=== PATIENT | female | born 1955 | race Caucasian/White ===

== ENCOUNTER 2017-01-11 17:51 | Emergency (ER) | payer OTHER ==
[~2017-01-11] VITALS: Ht 157.5 cm; Wt 40.1 kg
[~2017-01-11 17:51] MED LIST: B12 HEALTH1000 MCG/1 PO; BONIVA150 MG PO; CELLCEPT500 MG PO; CUBICIN500 MG/10 IV; FIBERCON625 MG PO; KLONOPIN1 MG PO; LASIX40 MG PO; LIBRAX CAPSULE1 EACH PO; LIPITOR20 MG PO; OMEGA 3 1,0001 EACH PO; PREDNISONE5 M2 PO; PROBIOTIC1 EACH PO; PROGRAF1 MG PO; PROTONIX40 MG PO; SORBITOL1 ML PO; SPS RC; VITAMIN A10000 UNI1 PO; VITAMIN C1000 M3 GT; VITAMIN D2000 INTUN PO; ZOLOFT100 MG PO
[2017-01-11 19:45] LABS: HEMATOCRIT 37.8 % (36.0-46.0); MCH 29.4 PG (29.0-34.0); MCHC 33.3 G/DL (30.0-36.0); MCV 88.1 FL (83-99); MEAN PLAT.VOLUME 9.6 uM^3 (9.5-12.4); PLATELET COUNT 210 K/uL (156-360); RBC DIS.WIDTH-CV 14.4 % (11.8-14.6); RBC DIS.WIDTH-SD 45.8 % (39-53); RED BLOOD COUNT 4.29 M/uL (3.80-5.20); WHITE BLOOD COUNT 4.8 K/uL (4.1-10.2)
[2017-01-11 19:58] LABS: ADD MIUA? YES; BILIRUBIN NEGATIVE; BLOOD SMALL; COLOR YELLOW ((YELLOW)); GLUCOSE (STRIP) NEGATIVE; KETONES NEGATIVE; LEUKOCYTES NEGATIVE; NITRITE NEGATIVE; PROTEIN (STRIP) 100; UROBILINOGEN 0.2 MG/DL (0.2-1.0)
[2017-01-11 20:35] LABS: BACTERIA 3+ /HPF; EPITHELIAL CELLS RARE /HPF; MUCUS NONE SEEN /LPF; RED BLOOD CELLS 0-5 /HPF (0-5); UCUL ADDED? YES
[2017-01-11 20:36] LABS: CASTS NONE SEEN /LPF; CRYSTALS NONE SEEN
[2017-01-11 20:48] LABS: CHLORIDE 98 mEq/L (99-109); POTASSIUM 3.7 mEq/L (3.7-5.4); SODIUM 131 mEq/L (136-147)
[2017-01-11 20:51] LABS: GLUCOSE 83 mg/dL (70-99)
[2017-01-11 20:52] LABS: ANION GAP 7 MEQ/L (2-14)
[2017-01-11 20:53] LABS: TOTAL BILIRUBIN 0.3 mg/dL (0.0-1.0)
[2017-01-11 20:54] LABS: ALKALINE PHOSPHATASE 83 IU/L (3-129); GFR ESTIMATE (CALCULATED) 44 mL/min/
[2017-01-11 20:55] LABS: UREA NITROGEN (BUN) 30 mg/dL (9-23)
[2017-01-11] MEDS ORDERED: BACTRIM,SEPT1 TABLET PO (22:32)
[2017-01-12 03:03] VITALS: BP 144/89
== END 2017-01-12 03:05 | disposition home or self-care (01) ==
LOC: EME 17:51
PROVIDERS: Emergency Medicine
DX: N39.0 Urinary tract infection, site not specified (principal); R42 Dizziness and giddiness; E11.9 Type 2 diabetes mellitus without complications; F32.9 Major depressive disorder, single episode, unspecified; N18.9 Chronic kidney disease, unspecified; Z88.0 Allergy status to penicillin; Z94.0 Kidney transplant status; Z94.83 Pancreas transplant status
CPT/HCPCS: 70450; 80053; 81003; 85027; 87077; 87086; 87186; 93005; 99281; 99285; J7030

== ENCOUNTER 2017-01-17 13:05 | Inpatient (IN) | payer OTHER ==
[~2017-01-17] VITALS: Ht 152.4 cm; Wt 44.6 kg
[~2017-01-17 13:05] MED LIST changes: +BACTRIM,SEPT1 TABLET PO
[2017-01-17 13:52] LABS: HEMATOCRIT 33.8 % (36.0-46.0); MCH 28.8 PG (29.0-34.0); MCHC 33.4 G/DL (30.0-36.0); PLATELET COUNT 304 K/uL (156-360); RBC DIS.WIDTH-CV 13.8 % (11.8-14.6); RBC DIS.WIDTH-SD 44.1 % (39-53); RED BLOOD COUNT 3.93 M/uL (3.80-5.20); WHITE BLOOD COUNT 4.5 K/uL (4.1-10.2)
[2017-01-17 13:59] LABS: CHLORIDE 98 mEq/L (99-109); POTASSIUM 4.2 mEq/L (3.7-5.4); SODIUM 129 mEq/L (136-147)
[2017-01-17 14:00] LABS: GLUCOSE 92 mg/dL (70-99)
[2017-01-17 14:02] LABS: ANION GAP 8 MEQ/L (2-14)
[2017-01-17 14:04] LABS: GFR ESTIMATE (CALCULATED) 27 mL/min/
[2017-01-17 14:05] LABS: UREA NITROGEN (BUN) 32 mg/dL (9-23)
[2017-01-17 14:16] LABS: TROP-I INTERPRETATION NEGATIVE; TROPONIN-I 0.02 ng/mL (0.0-0.30)
[2017-01-17 14:41] LABS: ADD MIUA? YES; BILIRUBIN NEGATIVE; BLOOD SMALL; COLOR YELLOW ((YELLOW)); GLUCOSE (STRIP) NEGATIVE; KETONES NEGATIVE; LEUKOCYTES LARGE; NITRITE NEGATIVE; PROTEIN (STRIP) 100; SPECIFIC GRAVITY 1.009 (1.000-1.030); UROBILINOGEN 0.2 MG/DL (0.2-1.0)
[2017-01-17 15:06] LABS: BACTERIA 2+ /HPF; EPITHELIAL CELLS RARE /HPF; MUCUS TRACE /LPF; UCUL ADDED? YES; WHITE BLOOD CELLS TNTC /HPF (0-5)
[2017-01-17] MEDS ORDERED: PREDNISONE5 MG PO (16:46)
[2017-01-17] MEDS ORDERED: WELLBUTRIN XL300 MG PO (16:49)
[2017-01-17] MEDS ORDERED: MYCOPHENOLATE250 MG PO (16:50)
[2017-01-17] MEDS ORDERED: BACTRIM,SEPT1 TABLET PO (16:58)
[2017-01-17] MEDS ORDERED: TUMS500 MG PO (16:59)
[2017-01-17] MEDS ORDERED: PEPOGEST0.2 ML PO (16:59)
[2017-01-17] MEDS ORDERED: MUCINEX600 MG PO (17:01)
[2017-01-17] MEDS ORDERED: FISH OIL 1,0001 EAC7 PO (17:01)
[2017-01-17] MEDS ORDERED: AFRIN,GENASAL D15 ML BOTH NARES (17:02)
[2017-01-17] MEDS ORDERED: LACTAID ULT9000 UNIT PO (17:02)
[2017-01-17] MEDS ORDERED: PROMETHAZINE HC25 M1 PO (17:03)
[2017-01-17] MEDS ORDERED: LOPERAMIDE2 M1 PO (17:04)
[2017-01-17] MEDS ORDERED: BENADRYL25 MG PO (17:05)
[2017-01-17] MEDS ORDERED: GAS RELIEF125 M1 PO (17:05)
[2017-01-17] MEDS ORDERED: TYLENOL EXTRA500 MG PO (17:06)
[2017-01-17] MEDS ORDERED: MILK OF MAGN PO (17:06)
[2017-01-17] MEDS ORDERED: MIRALAX17 GM PO (17:07)
[2017-01-17] MEDS ORDERED: ADULT SUPPOSIT1 EACH PR (17:08)
[2017-01-17] MEDS ORDERED: PEPTO BISMOL262 MG PO (17:08)
[2017-01-17 18:09] VITALS: BP 138/77
[2017-01-17 18:24] VITALS: BP 138/77
[2017-01-17 21:40] VITALS: BP 160/80
[2017-01-17 23:34] VITALS: BP 148/78
[2017-01-18 04:34] VITALS: BP 134/72
[2017-01-18 07:17] VITALS: BP 139/66
[2017-01-18 07:32] LABS: ANION GAP 10 MEQ/L (2-14); CHLORIDE 101 MEQ/L (99-109); GFR ESTIMATE (CALCULATED) 32 mL/min/; GLUCOSE 65 mg/dL (70-99); POTASSIUM 4.1 MEQ/L (3.7-5.4); SAMPLE HEMOLYSIS CHECK 0; SAMPLE ICTERIC CHECK 0; SAMPLE LIPEMIA CHECK 0; SODIUM 132 MEQ/L (136-147); UREA NITROGEN (BUN) 30 mg/dL (9-23)
[2017-01-18 13:20] VITALS: BP 120/66
[2017-01-18 15:40] VITALS: BP 116/66
[2017-01-18 19:29] VITALS: BP 103/57
[2017-01-18 23:42] VITALS: BP 117/73
[2017-01-19 03:31] VITALS: BP 104/63
[2017-01-19 06:36] LABS: ANION GAP 10 MEQ/L (2-14); CHLORIDE 100 MEQ/L (99-109); GFR ESTIMATE (CALCULATED) 35 mL/min/; GLUCOSE 74 mg/dL (70-99); SAMPLE HEMOLYSIS CHECK 0; SAMPLE ICTERIC CHECK 0; SAMPLE LIPEMIA CHECK 0; SODIUM 131 MEQ/L (136-147); UREA NITROGEN (BUN) 28 mg/dL (9-23)
[2017-01-19 07:01] VITALS: BP 114/68
[2017-01-19 15:37] VITALS: BP 135/79
[2017-01-20 08:05] VITALS: BP 116/71
[2017-01-20 08:18] LABS: EOSINOPHIL (%) 0.2 % (0-5); HEMATOCRIT 32.7 % (36.0-46.0); IMMATURE GRANULOCYTE (%) 0.2 % (0.0-0.7); INSTRUMENT ABS NEUTROPHIL CT 2.7 K/uL; LYMPHOCYTE COUNT 1.2 K/uL (1.0-2.8); MCH 29.7 PG (29.0-34.0); MCV 89.8 FL (83-99); MONOCYTE (%) 4.1 % (3-12); MONOCYTE COUNT 0.2 K/uL (0-0.8); NEUTROPHIL (%) 65.4 % (45-76); NEUTROPHIL COUNT 2.7 K/uL (1.8-6.4); PLATELET COUNT 305 K/uL (156-360); RBC DIS.WIDTH-CV 14.1 % (11.8-14.6); RBC DIS.WIDTH-SD 46.4 % (39-53); RED BLOOD COUNT 3.64 M/uL (3.80-5.20); WHITE BLOOD COUNT 4.2 K/uL (4.1-10.2)
[2017-01-20 08:32] LABS: AMYLASE 61 IU/L (1-118); ANION GAP 10 MEQ/L (2-14); CHLORIDE 101 MEQ/L (99-109); GFR ESTIMATE (CALCULATED) 35 mL/min/; GLUCOSE 65 mg/dL (70-99); LIPASE 58 U/L (1.0-51.0); POTASSIUM 4.3 MEQ/L (3.7-5.4); SAMPLE HEMOLYSIS CHECK 0; SAMPLE ICTERIC CHECK 0; SAMPLE LIPEMIA CHECK 0; SODIUM 131 MEQ/L (136-147); UREA NITROGEN (BUN) 26 mg/dL (9-23)
[2017-01-20 16:06] LABS: URIC ACID 3.9 mg/dL (3.1-9.2)
[2017-01-20 16:45] VITALS: BP 135/80
[2017-01-20 23:33] VITALS: BP 133/70
[2017-01-21 00:04] VITALS: BP 120/59
[2017-01-21 07:10] VITALS: BP 146/72
[2017-01-21 07:28] LABS: ANION GAP 8 MEQ/L (2-14); CHLORIDE 103 MEQ/L (99-109); GFR ESTIMATE (CALCULATED) 44 mL/min/; GLUCOSE 70 mg/dL (70-99); POTASSIUM 4.3 MEQ/L (3.7-5.4); SAMPLE HEMOLYSIS CHECK 0; SAMPLE ICTERIC CHECK 0; SAMPLE LIPEMIA CHECK 0; SODIUM 131 MEQ/L (136-147); UREA NITROGEN (BUN) 21 mg/dL (9-23)
[2017-01-21 16:21] VITALS: BP 116/65
[2017-01-22 00:01] VITALS: BP 138/82
[2017-01-22 06:42] LABS: ANION GAP 8 MEQ/L (2-14); CHLORIDE 102 MEQ/L (99-109); GFR ESTIMATE (CALCULATED) 53 mL/min/; GLUCOSE 65 mg/dL (70-99); POTASSIUM 4.5 MEQ/L (3.7-5.4); SAMPLE HEMOLYSIS CHECK 0; SAMPLE ICTERIC CHECK 0; SAMPLE LIPEMIA CHECK 0; SODIUM 130 MEQ/L (136-147); UREA NITROGEN (BUN) 19 mg/dL (9-23)
[2017-01-22 06:57] VITALS: BP 123/60
[2017-01-22 07:00] VITALS: BP 137/76
[2017-01-22 17:00] VITALS: BP 107/68
[2017-01-23 00:44] VITALS: BP 127/62
[2017-01-23 07:04] LABS: ANION GAP 7 MEQ/L (2-14); CHLORIDE 102 MEQ/L (99-109); GFR ESTIMATE (CALCULATED) 53 mL/min/; POTASSIUM 4.5 MEQ/L (3.7-5.4); SAMPLE HEMOLYSIS CHECK 0; SAMPLE ICTERIC CHECK 0; SAMPLE LIPEMIA CHECK 0; SODIUM 132 MEQ/L (136-147); UREA NITROGEN (BUN) 17 mg/dL (9-23)
[2017-01-23 07:05] LABS: GLUCOSE 82 mg/dL (70-99)
[2017-01-23 07:33] VITALS: BP 116/73
[2017-01-23] MEDS ORDERED: ANTIVERT25 MG PO (10:06)
[2017-01-23 15:55] VITALS: BP 140/81
[2017-01-23 20:05] VITALS: BP 115/73
== END 2017-01-23 21:18 | disposition home or self-care (01) | DRG 149 ==
LOC: EME 13:05 → EDOF 16:05 → 2EASTP 16:05 → 2EAST 01-20 22:40
PROVIDERS: Emergency Medicine; Internal Medicine; Internal Medicine Nephrology
DX: H81.10 Benign paroxysmal vertigo, unspecified ear (principal); N39.0 Urinary tract infection, site not specified; T45.1X1D Poisoning by antineoplastic and immunosuppressive drugs, accidental (unintentional), subsequent encounter; Z94.0 Kidney transplant status; Z94.83 Pancreas transplant status; Z68.1 Body mass index [BMI] 19.9 or less, adult; E10.21 Type 1 diabetes mellitus with diabetic nephropathy; E46 Unspecified protein-calorie malnutrition; N17.9 Acute kidney failure, unspecified; R33.0 Drug induced retention of urine; I73.9 Peripheral vascular disease, unspecified; T45.1X5A Adverse effect of antineoplastic and immunosuppressive drugs, initial encounter; E10.22 Type 1 diabetes mellitus with diabetic chronic kidney disease; E10.319 Type 1 diabetes mellitus with unspecified diabetic retinopathy without macular edema; E87.1 Hypo-osmolality and hyponatremia; E10.40 Type 1 diabetes mellitus with diabetic neuropathy, unspecified; E78.5 Hyperlipidemia, unspecified; D63.1 Anemia in chronic kidney disease; F32.9 Major depressive disorder, single episode, unspecified; H35.30 Unspecified macular degeneration; B96.4 Proteus (mirabilis) (morganii) as the cause of diseases classified elsewhere; E55.9 Vitamin D deficiency, unspecified; K21.9 Gastro-esophageal reflux disease without esophagitis; Z89.512 Acquired absence of left leg below knee; Z79.899 Other long term (current) drug therapy; Z79.4 Long term (current) use of insulin
CPT/HCPCS: 70450; 76776; 80048; 80069; 80197 90; 81003; 82150; 82306; 82436; 82948; 83605; 83690; 83935; 84300; 84443; 84484; 84550; 85025; 85027; 87077; 87086; 87186; 93005; 97530 GP; 99281; 99284; J0690; J0696; J1644; J2405; J7030; J7050; J7507; J7512; J7517; Q0169

== ENCOUNTER 2017-03-12 16:31 | Inpatient (IN) | payer OTHER ==
[~2017-03-12] VITALS: Ht 170.2 cm; Wt 47.2 kg
[~2017-03-12 16:31] MED LIST changes: +ADULT SUPPOSIT1 EACH PR; +AFRIN,GENASAL D15 ML BOTH NARES; +ANTIVERT25 MG PO; +BENADRYL25 MG PO; +FISH OIL 1,0001 EAC7 PO; +GAS RELIEF125 M1 PO; +LACTAID ULT9000 UNIT PO; +LOPERAMIDE2 M1 PO; +MILK OF MAGN PO; +MIRALAX17 GM PO; +MUCINEX600 MG PO; +MYCOPHENOLATE250 MG PO; +PEPOGEST0.2 ML PO; +PEPTO BISMOL262 MG PO; +PREDNISONE5 MG PO; +PROMETHAZINE HC25 M1 PO; +TUMS500 MG PO; +TYLENOL EXTRA500 MG PO; +WELLBUTRIN XL300 MG PO
[2017-03-12 19:59] LABS: HEMATOCRIT 34.3 % (36.0-46.0); MCH 29.6 PG (29.0-34.0); MCHC 34.1 G/DL (30.0-36.0); MEAN PLAT.VOLUME 8.7 uM^3 (9.5-12.4); PLATELET COUNT 216 K/uL (156-360); RBC DIS.WIDTH-CV 14.3 % (11.8-14.6); RBC DIS.WIDTH-SD 45.6 % (39-53); RED BLOOD COUNT 3.95 M/uL (3.80-5.20); WHITE BLOOD COUNT 5.9 K/uL (4.1-10.2)
[2017-03-12 20:00] LABS: MCV 86.8 FL (83-99)
[2017-03-12 20:10] LABS: CHLORIDE 96 mEq/L (99-109); POTASSIUM 4.7 mEq/L (3.7-5.4); SODIUM 129 mEq/L (136-147)
[2017-03-12 20:11] LABS: GLUCOSE 77 mg/dL (70-99)
[2017-03-12 20:13] LABS: ANION GAP 9 MEQ/L (2-14)
[2017-03-12 20:15] LABS: GFR ESTIMATE (CALCULATED) > 59 mL/min/
[2017-03-12 20:16] LABS: UREA NITROGEN (BUN) 7 mg/dL (9-23)
[2017-03-12] MEDS ORDERED: FISH OIL GUMMI1 EACH PO (21:22)
[2017-03-12] MEDS ORDERED: MACROBID100 MG PO (21:25)
[2017-03-12] MEDS ORDERED: WELLBUTRIN100 MG PO (21:28)
[2017-03-12] MEDS ORDERED: PREPARATION H C51 G1 PR (21:43)
[2017-03-12] MEDS ORDERED: NASAL DECONGEST30 MG PO (21:45)
[2017-03-12] MEDS ORDERED: [UNRECOGNIZED DRUG - OTHER] PO (21:48)
[2017-03-13] VITALS (7 sets, daily range): BP systolic 98–175; BP diastolic 53–95
[2017-03-13 06:07] LABS: POINT-OF-CARE METER ID UU14162508
[2017-03-13 06:19] LABS: HEMATOCRIT 32.1 % (36.0-46.0); MCH 29.9 PG (29.0-34.0); MCHC 34.3 G/DL (30.0-36.0); MCV 87.2 FL (83-99); MEAN PLAT.VOLUME 8.6 uM^3 (9.5-12.4); PLATELET COUNT 210 K/uL (156-360); RBC DIS.WIDTH-CV 14.5 % (11.8-14.6); RBC DIS.WIDTH-SD 45.9 % (39-53); RED BLOOD COUNT 3.68 M/uL (3.80-5.20); WHITE BLOOD COUNT 6.2 K/uL (4.1-10.2)
[2017-03-13 06:49] LABS: ANION GAP 7 MEQ/L (2-14); CHLORIDE 98 MEQ/L (99-109); GFR ESTIMATE (CALCULATED) > 59 mL/min/; GLUCOSE 77 mg/dL (70-99); POTASSIUM 3.9 MEQ/L (3.7-5.4); SAMPLE HEMOLYSIS CHECK 0; SAMPLE ICTERIC CHECK 0; SAMPLE LIPEMIA CHECK 0; SODIUM 130 MEQ/L (136-147); UREA NITROGEN (BUN) 8 mg/dL (9-23)
[2017-03-13 10:26] LABS: METH RESISTANT S AUREUS PCR NEGATIVE (NEGATIVE)
[2017-03-13 10:37] LABS: PROBE CHECK PASS; SPECIMEN PROCESSING CONTROL PASS
[2017-03-13 13:15] LABS: POINT-OF-CARE METER ID UU14162508
[2017-03-13 18:02] LABS: POINT-OF-CARE METER ID UU14162508
[2017-03-13 21:29] LABS: ADD MIUA? YES; BILIRUBIN NEGATIVE; BLOOD SMALL; COLOR YELLOW ((YELLOW)); GLUCOSE (STRIP) 50; KETONES NEGATIVE; LEUKOCYTES LARGE; NITRITE POSITIVE; PROTEIN (STRIP) NEGATIVE; SPECIFIC GRAVITY 1.006 (1.000-1.030); UROBILINOGEN 0.2 MG/DL (0.2-1.0)
[2017-03-13 21:29] LABS: POINT-OF-CARE METER ID UU14208750
[2017-03-13 21:49] LABS: EPITHELIAL CELLS 2+ /HPF; MUCUS RARE /LPF; RED BLOOD CELLS 0-5 /HPF (0-5); WHITE BLOOD CELLS TNTC /HPF (0-5)
[2017-03-13 21:50] LABS: BACTERIA 2+ /HPF
[2017-03-14 07:19] LABS: HEMATOCRIT 34.4 % (36.0-46.0); MCHC 33.1 G/DL (30.0-36.0); MCV 87.5 FL (83-99); MEAN PLAT.VOLUME 8.7 uM^3 (9.5-12.4); PLATELET COUNT 213 K/uL (156-360); RBC DIS.WIDTH-CV 14.7 % (11.8-14.6); RBC DIS.WIDTH-SD 47.8 % (39-53); RED BLOOD COUNT 3.93 M/uL (3.80-5.20); WHITE BLOOD COUNT 5.7 K/uL (4.1-10.2)
[2017-03-14 07:41] LABS: ANION GAP 7 MEQ/L (2-14); CHLORIDE 101 MEQ/L (99-109); GFR ESTIMATE (CALCULATED) > 59 mL/min/; GLUCOSE 77 mg/dL (70-99); POTASSIUM 3.7 MEQ/L (3.7-5.4); SAMPLE HEMOLYSIS CHECK 0; SAMPLE ICTERIC CHECK 0; SAMPLE LIPEMIA CHECK 0; SODIUM 133 MEQ/L (136-147); UREA NITROGEN (BUN) 7 mg/dL (9-23)
[2017-03-14 07:50] VITALS: BP 172/93
[2017-03-14 16:02] VITALS: BP 174/91
[2017-03-14 23:21] VITALS: BP 158/90
[2017-03-15 04:10] VITALS: BP 149/75
[2017-03-15 07:25] VITALS: BP 164/86
[2017-03-15 08:11] LABS: ANION GAP 6 MEQ/L (2-14); CHLORIDE 100 MEQ/L (99-109); GFR ESTIMATE (CALCULATED) > 59 mL/min/; GLUCOSE 76 mg/dL (70-99); POTASSIUM 3.4 MEQ/L (3.7-5.4); SAMPLE HEMOLYSIS CHECK 0; SAMPLE ICTERIC CHECK 0; SAMPLE LIPEMIA CHECK 0; SODIUM 134 MEQ/L (136-147); UREA NITROGEN (BUN) 7 mg/dL (9-23)
[2017-03-15] MEDS ORDERED: ELIQUIS5 MG PO (08:51)
[2017-03-15] MEDS ORDERED: KEFLEX500 MG PO (08:51)
== END 2017-03-15 13:45 | disposition home or self-care (01) | DRG 300 ==
LOC: EME 16:31 → 2EASTP 21:53 → EDOF 21:53 → ENRESERV 21:55 → 2EASTP 03-13 00:24
PROVIDERS: Emergency Medicine; Hospitalist; Internal Medicine
DX: I82.431 Acute embolism and thrombosis of right popliteal vein (principal); I82.441 Acute embolism and thrombosis of right tibial vein; I82.491 Acute embolism and thrombosis of other specified deep vein of right lower extremity; E11.628 Type 2 diabetes mellitus with other skin complications; L03.115 Cellulitis of right lower limb; E11.22 Type 2 diabetes mellitus with diabetic chronic kidney disease; N18.9 Chronic kidney disease, unspecified; Z94.0 Kidney transplant status; Z94.83 Pancreas transplant status; E87.1 Hypo-osmolality and hyponatremia; E11.319 Type 2 diabetes mellitus with unspecified diabetic retinopathy without macular edema; E11.42 Type 2 diabetes mellitus with diabetic polyneuropathy; H35.30 Unspecified macular degeneration; F32.9 Major depressive disorder, single episode, unspecified; F41.9 Anxiety disorder, unspecified; Z68.1 Body mass index [BMI] 19.9 or less, adult; Z89.512 Acquired absence of left leg below knee; Z79.899 Other long term (current) drug therapy; Z99.3 Dependence on wheelchair; Z80.51 Family history of malignant neoplasm of kidney; Z82.49 Family history of ischemic heart disease and other diseases of the circulatory system
CPT/HCPCS: 80048; 81003; 82948; 85027; 87040; 87086; 87641; 93971; 99281; 99285; J0690; J1815; J2405; J7507; J7512; J7517

== ENCOUNTER 2017-04-07 10:20 | Inpatient (IN) | payer OTHER ==
[~2017-04-07] VITALS: Ht 152.4 cm; Wt 42.0 kg
[~2017-04-07 10:20] MED LIST changes: +ELIQUIS5 MG PO; +FISH OIL GUMMI1 EACH PO; +KEFLEX500 MG PO; +MACROBID100 MG PO; +NASAL DECONGEST30 MG PO; +PREPARATION H C51 G1 PR; +[UNRECOGNIZED DRUG - OTHER] PO
[2017-04-07 11:04] LABS: EOSINOPHIL (%) 0 % (0-5); IMMATURE GRANULOCYTE (%) 0.4 % (0.0-0.7); IMMATURE GRANULOCYTE COUNT 0.1 K/uL; INSTRUMENT ABS NEUTROPHIL CT 13.6 K/uL; LYMPHOCYTE COUNT 0.4 K/uL (1.0-2.8); MCH 28.8 PG (29.0-34.0); MCHC 33.6 G/DL (30.0-36.0); MCV 85.9 FL (83-99); MEAN PLAT.VOLUME 8.5 uM^3 (9.5-12.4); MONOCYTE (%) 2.3 % (3-12); MONOCYTE COUNT 0.3 K/uL (0-0.8); NEUTROPHIL (%) 94.4 % (45-76); NEUTROPHIL COUNT 13.6 K/uL (1.8-6.4); PLATELET COUNT 471 K/uL (156-360); RBC DIS.WIDTH-CV 14.7 % (11.8-14.6); RBC DIS.WIDTH-SD 46.3 % (39-53); RED BLOOD COUNT 3.26 M/uL (3.80-5.20); WHITE BLOOD COUNT 14.4 K/uL (4.1-10.2)
[2017-04-07 11:10] LABS: CHLORIDE 108 mEq/L (99-109); POTASSIUM 3.5 mEq/L (3.7-5.4); SODIUM 134 mEq/L (136-147)
[2017-04-07 11:13] LABS: ANION GAP 7 MEQ/L (2-14); GLUCOSE 101 mg/dL (70-99)
[2017-04-07 11:14] LABS: TOTAL BILIRUBIN 0.5 mg/dL (0.0-1.0)
[2017-04-07 11:16] LABS: ALKALINE PHOSPHATASE 111 IU/L (3-129); GFR ESTIMATE (CALCULATED) > 59 mL/min/
[2017-04-07 11:17] LABS: UREA NITROGEN (BUN) 17 mg/dL (9-23)
[2017-04-07] MEDS ORDERED: ALLERGY RELIEF25 M1 PO (12:51)
[2017-04-07] MEDS ORDERED: CULTURELLE1 EAC1 PO (12:51)
[2017-04-07] MEDS ORDERED: NASAL DECONGESTANT PO (12:52)
[2017-04-07] MEDS ORDERED: ROBITUSSIN DM118 ML PO (12:53)
[2017-04-07] MEDS ORDERED: ELIQUIS5 MG PO (12:57)
[2017-04-07 14:46] LABS: ADD MIUA? YES; BILIRUBIN NEGATIVE; BLOOD NEGATIVE; COLOR YELLOW ((YELLOW)); GLUCOSE (STRIP) NEGATIVE; KETONES NEGATIVE; LEUKOCYTES LARGE; NITRITE NEGATIVE; PROTEIN (STRIP) 30; SPECIFIC GRAVITY 1.012 (1.000-1.030)
[2017-04-07 14:58] LABS: BACTERIA RARE /HPF; EPITHELIAL CELLS RARE /HPF; HYALINE CASTS 0-5 /LPF; MUCUS NONE SEEN /LPF; RED BLOOD CELLS 0-5 /HPF (0-5); UCUL ADDED? YES; WHITE BLOOD CELLS TNTC /HPF (0-5)
[2017-04-07 16:34] LABS: INFLUENZA A VIRAL ANTIGEN NEGATIVE; INFLUENZA B VIRAL ANTIGEN NEGATIVE
[2017-04-07 17:46] VITALS: BP 178/79
[2017-04-07 20:10] VITALS: BP 163/70
[2017-04-07 20:53] LABS: C DIFF TOXIN NEGATIVE (NEGATIVE)
[2017-04-07 20:56] LABS: PROBE CHECK PASS; SPECIMEN PROCESSING CONTROL PASS
[2017-04-07 22:01] LABS: POINT-OF-CARE METER ID UU14162508
[2017-04-07 23:29] VITALS: BP 162/78
[2017-04-08] VITALS (7 sets, daily range): BP systolic 128–167; BP diastolic 73–90
[2017-04-08 06:38] LABS: POINT-OF-CARE METER ID UU14162508
[2017-04-08 07:00] LABS: EOSINOPHIL (%) 0 % (0-5); HEMATOCRIT 26.8 % (36.0-46.0); IMMATURE GRANULOCYTE (%) 0.7 % (0.0-0.7); IMMATURE GRANULOCYTE COUNT 0.1 K/uL; LYMPHOCYTE COUNT 0.6 K/uL (1.0-2.8); MCH 29.8 PG (29.0-34.0); MCV 87.9 FL (83-99); MEAN PLAT.VOLUME 8.9 uM^3 (9.5-12.4); MONOCYTE (%) 2.9 % (3-12); MONOCYTE COUNT 0.4 K/uL (0-0.8); NEUTROPHIL (%) 91.2 % (45-76); PLATELET COUNT 506 K/uL (156-360); RBC DIS.WIDTH-CV 15.1 % (11.8-14.6); RBC DIS.WIDTH-SD 48.5 % (39-53); RED BLOOD COUNT 3.05 M/uL (3.80-5.20); WHITE BLOOD COUNT 12.1 K/uL (4.1-10.2)
[2017-04-08 07:31] LABS: ALKALINE PHOSPHATASE 95 IU/L (3-129); ANION GAP 8 MEQ/L (2-14); CHLORIDE 109 MEQ/L (99-109); GFR ESTIMATE (CALCULATED) > 59 mL/min/; GLUCOSE 84 mg/dL (70-99); POTASSIUM 4.2 MEQ/L (3.7-5.4); SAMPLE HEMOLYSIS CHECK 0; SAMPLE ICTERIC CHECK 0; SAMPLE LIPEMIA CHECK 0; SODIUM 137 MEQ/L (136-147); TOTAL BILIRUBIN 0.4 MG/DL (0.0-1.0); UREA NITROGEN (BUN) 14 mg/dL (9-23)
[2017-04-08 08:37] LABS: INTERNAL CONTROL VALID? YES
[2017-04-09 03:21] VITALS: BP 162/80
[2017-04-09 07:30] VITALS: BP 166/89
[2017-04-09 11:21] VITALS: BP 164/93
[2017-04-09 15:28] VITALS: BP 176/92
[2017-04-10 00:12] VITALS: BP 162/98
[2017-04-10 06:28] LABS: EOSINOPHIL (%) 0.5 % (0-5); EOSINOPHIL COUNT 0.1 K/uL (0-0.3); HEMATOCRIT 28.6 % (36.0-46.0); IMMATURE GRANULOCYTE (%) 1.3 % (0.0-0.7); IMMATURE GRANULOCYTE COUNT 0.1 K/uL; INSTRUMENT ABS NEUTROPHIL CT 8.2 K/uL; LYMPHOCYTE COUNT 0.9 K/uL (1.0-2.8); MCH 28.5 PG (29.0-34.0); MCHC 32.2 G/DL (30.0-36.0); MCV 88.5 FL (83-99); MEAN PLAT.VOLUME 8.6 uM^3 (9.5-12.4); MONOCYTE (%) 3.6 % (3-12); MONOCYTE COUNT 0.4 K/uL (0-0.8); NEUTROPHIL (%) 85.5 % (45-76); NEUTROPHIL COUNT 8.2 K/uL (1.8-6.4); PLATELET COUNT 502 K/uL (156-360); RBC DIS.WIDTH-CV 15.1 % (11.8-14.6); RBC DIS.WIDTH-SD 48.9 % (39-53); RED BLOOD COUNT 3.23 M/uL (3.80-5.20); WHITE BLOOD COUNT 9.6 K/uL (4.1-10.2)
[2017-04-10 07:46] VITALS: BP 163/87
[2017-04-10 11:19] VITALS: BP 112/88
[2017-04-10 15:30] VITALS: BP 160/80
[2017-04-11 00:06] VITALS: BP 125/85
[2017-04-11 07:40] VITALS: BP 162/89
[2017-04-11 17:26] VITALS: BP 175/89
[2017-04-12 00:18] VITALS: BP 135/85
[2017-04-12 07:16] LABS: HEMATOCRIT 29.6 % (36.0-46.0); MCHC 32.8 G/DL (30.0-36.0); MCV 88.6 FL (83-99); MEAN PLAT.VOLUME 8.9 uM^3 (9.5-12.4); PLATELET COUNT 525 K/uL (156-360); RBC DIS.WIDTH-CV 15.3 % (11.8-14.6); RBC DIS.WIDTH-SD 49.1 % (39-53); RED BLOOD COUNT 3.34 M/uL (3.80-5.20); WHITE BLOOD COUNT 8.4 K/uL (4.1-10.2)
[2017-04-12 07:42] LABS: ANION GAP 8 MEQ/L (2-14); CHLORIDE 109 MEQ/L (99-109); GFR ESTIMATE (CALCULATED) > 59 mL/min/; GLUCOSE 96 mg/dL (70-99); POTASSIUM 3.2 MEQ/L (3.7-5.4); SAMPLE HEMOLYSIS CHECK 0; SAMPLE ICTERIC CHECK 0; SAMPLE LIPEMIA CHECK 0; SODIUM 138 MEQ/L (136-147); UREA NITROGEN (BUN) 6 mg/dL (9-23)
[2017-04-12 08:11] VITALS: BP 150/84
[2017-04-12] MEDS ORDERED: BETHANECHOL CHL25 MG PO (14:26)
[2017-04-12] MEDS ORDERED: NATURAL BALANCE15 M1 BOTH EYES (14:27)
[2017-04-12] MEDS ORDERED: ACETAMINOPHEN-1 EAC1 PO (14:28)
[2017-04-12 15:39] VITALS: BP 151/85
== END 2017-04-12 17:21 | DRG 194 ==
LOC: EME 10:20 → 2EAST 12:43 → EDOF 12:43 → ENRESERV 12:51 → 2EAST 17:10
PROVIDERS: Emergency Medicine; Hospitalist; Internal Medicine; Student in an Organized Health Care Education/Training Program
DX: J18.9 Pneumonia, unspecified organism (principal); N31.2 Flaccid neuropathic bladder, not elsewhere classified; L03.115 Cellulitis of right lower limb; N39.0 Urinary tract infection, site not specified; H10.9 Unspecified conjunctivitis; Z94.0 Kidney transplant status; E87.1 Hypo-osmolality and hyponatremia; E87.6 Hypokalemia; E83.51 Hypocalcemia; K21.9 Gastro-esophageal reflux disease without esophagitis; E78.5 Hyperlipidemia, unspecified; E11.22 Type 2 diabetes mellitus with diabetic chronic kidney disease; I12.9 Hypertensive chronic kidney disease with stage 1 through stage 4 chronic kidney disease, or unspecified chronic kidney disease; N18.9 Chronic kidney disease, unspecified; Z89.512 Acquired absence of left leg below knee; Z94.83 Pancreas transplant status; Z86.718 Personal history of other venous thrombosis and embolism; Z79.01 Long term (current) use of anticoagulants; Z79.52 Long term (current) use of systemic steroids; Z68.1 Body mass index [BMI] 19.9 or less, adult
CPT/HCPCS: 71010; 80048; 80053; 80069; 80197 90; 81003; 82150; 82150 91; 82948; 83690; 83735; 84550; 85025; 85027; 87040; 87070; 87077; 87086; 87186; 87205; 87449; 87493; 87502; 99281; 99285; J0696; J7030; J7050; J7507; J7512; J7517